=== PATIENT | female | born 1985 | race Hispanic/Latino ===

== ENCOUNTER 2022-10-18 13:45 | Emergency (ER) | payer SELFPAY ==
[~2022-10-18] VITALS: Ht 160 cm; Wt 95.3 kg
[2022-10-18] MEDS ORDERED: DICLOFENAC SODI75 MG PO (15:06)
[2022-10-18] MEDS ORDERED: METHOCARBAMOL750 MG PO (15:08)
[2022-10-18 15:22] VITALS: BP 138/85; PULSE 80; RESP 18; TEMP 98.2; O2SAT 98
== END 2022-10-18 15:27 | disposition home or self-care (01) ==
LOC: ER 13:57
DX: M54.50 Low back pain, unspecified (principal); I10 Essential (primary) hypertension; F41.9 Anxiety disorder, unspecified
CPT/HCPCS: 99283